=== PATIENT | male | born 1965 | race Caucasian/White ===

== ENCOUNTER 2018-09-03 17:18 | Emergency (ER) | payer OTHER ==
[2018-09-03] MEDS ORDERED: LEVO50TA86 PO (17:22)
--- NOTE | 2018-09-03 17:44 | ER Report ---
History and Physical Time Seen By MD: 17:25 Hx. of Stated Complaint: ABDOMINAL PAIN AND FULLNESS X 6 WEEKS. REPORTS THAT THE DISTENTION MAKES HIM FEEL SHORT OF BREATH HPI/ROS CHIEF COMPLAINT: abdominal pain HISTORY OF PRESENT ILLNESS: 53 year old male presents to ED with epigastric pain. Reports that about 3 months ago he had LLQ pain. He was diagnosed with constipation, given medication for this which helped. Over the past three months, he started to develop upper mid-abdominal pressure. Reports pain is about a 1 out of 10, however he feels more of a pressure sensation. Reports he feels a ball of pressure that pushes on his diaphragm and makes it difficult to breath at times. He reports it makes him feel slight short of breath. He reports he feels constantly full with decreased appetite. He states he tries to eat small frequent snacks, but states he doesn't eat dinner much anymore. He reports he will drink a couple beers in the evening, and this makes him feel too full to eat. He reports he smokes marijuana nightly. Associated symptoms of nausea, vomiting and diarrhea. Reports he has vomited the past two mornings. He has had watery diarrhea for weeks. Denies blood in his vomit or stool. REVIEW OF SYSTEMS: Constitutional: No fever. Decreased appetite. Respiratory: Reports dyspnea as noted above. No cough. Cardiovascular: No chest pain, no palpitations. Gastrointestinal: Reports nausea, vomiting, diarrhea, and epigastric pressure as noted above. Musculoskeletal: No back pain. Allergies: Coded Allergies: No Known Drug Allergies (Unverified , 09/03/18) Home Meds Reported Medications Levothyroxine Sodium (LEVOTHYROXINE SODIUM) 50 Mcg Tablet, 50 MCG PO QDAY, TAB 09/03/18 Past Medical/Surgical History Past medical hx of cadasil, TIAs, diverticulitis, hypothyroid. No significant past surgical hx. Reviewed Nurses Notes: Yes Constitutional Vital Sign - Last 24 Hours 09/03/18 09/03/18 09/03/18 09/03/18 17:22 17:30 17:33 17:48 Temp 97.9 Pulse 60 64 57 Resp 20 18 10 B/P (MAP) 145/98 134/93 (107) Pulse Ox 90 91 92 O2 Delivery Room Air 09/03/18 09/03/18 09/03/18 09/03/18 18:18 18:30 18:33 18:48 Pulse 56 55 51 Resp 11 11 7 B/P (MAP) 136/108 (117) 09/03/18 09/03/18 18:53 19:00 Pulse 57 Resp 11 B/P (MAP) 128/98 (108) Physical Exam General Appearance: The patient is alert, has no immediate need for airway protection and no current signs of toxicity. Eyes: Pupils equal and round no injection. Respiratory: Chest is non tender, lungs are clear to auscultation. Cardiac: regular rate and rhythm Gastrointestinal: Abdomen is soft, no masses, bowel sounds normal. Reports slight tenderness in epigastric area. No hepatosplenomegaly. Musculoskeletal: Neck: Neck is supple and non tender. Extremities have full range of motion and are non tender. Skin: No rashes or lesions. DIFFERENTIAL DIAGNOSIS: After history and physical exam differential diagnosis was considered for hiatal hernia, pancreatitis, GI bleed, GERD, bowel obstruction, cancer. Medical Decision Making Data Points Result Diagram: 09/03/18 1748 09/03/18 1748 Laboratory Hematology Test 09/03/18 17:48 White Blood Count 5.9 k/uL (4.5-11.0) Red Blood Count 4.67 M/uL (4.00-5.60) Hemoglobin 14.9 g/dL (14.0-18.0) Hematocrit 42.5 % (42.0-52.0) Mean Corpuscular Volume 91.0 fL (80.0-96.0) Mean Corpuscular Hemoglobin 31.9 pg (26.0-33.0) Mean Corpuscular Hemoglobin Concent 35.0 g/dL (32.0-36.0) Red Cell Distribution Width 12.8 % (11.5-14.5) Platelet Count 196 K/uL (150-450) Mean Platelet Volume 9.4 fL (7.2-11.1) Neutrophils (%) (Auto) 52.5 % (39.4-72.5) Lymphocytes (%) (Auto) 34.5 % (17.6-49.6) Monocytes (%) (Auto) 7.5 % (4.1-12.4) Eosinophils (%) (Auto) 3.1 % (0.4-6.7) Basophils (%) (Auto) 2.4 % (0.3-1.4) H Nucleated RBC Relative Count (auto) 0.1 /100WBC Neutrophils # (Auto) 3.1 K/uL (2.0-7.4) Lymphocytes # (Auto) 2.0 K/uL (1.3-3.6) Monocytes # (Auto) 0.4 K/uL (0.3-1.0) Eosinophils # (Auto) 0.2 K/uL (0.0-0.5) Basophils # (Auto) 0.1 K/uL (0.0-0.1) Nucleated RBC Absolute Count (auto) 0.01 K/uL Chemistry Test 09/03/18 17:48 Sodium Level 139 mmol/L (137-145) Potassium Level 3.9 mmol/L (3.5-5.0) Chloride Level 104 mmol/L (98-107) Carbon Dioxide Level 26 mmol/L (22-30) Blood Urea Nitrogen 18 mg/dl (9-21) Creatinine 1.20 mg/dl (0.66-1.25) Glomerular Filtration Rate Calc > 60.0 Random Glucose 93 mg/dl (75-110) Calcium Level 10.0 mg/dl (8.4-10.2) Total Bilirubin 0.7 mg/dl (0.2-1.3) Aspartate Amino Transf (AST/SGOT) 30 U/L (0-35) Alanine Aminotransferase (ALT/SGPT) 34 U/L (0-56) Alkaline Phosphatase 59 U/L (0-126) C-Reactive Protein < 0.5 mg/dl (<1.0) Total Protein 7.4 g/dl (6.3-8.2) Albumin 4.5 g/dl (3.5-5.0) Amylase Level 110 U/L (0-110) Lipase 201 U/L (23-300) Urinalysis Test 09/03/18 17:28 Urine Color Straw Urine Clarity Clear Urine pH 7.0 pH (4.8-9.5) Urine Specific [place] 1.004 Urine Protein Negative mg/dL (NEGATIVE) Urine Glucose (UA) Negative mg/dL (NEGATIVE) Urine Ketones Negative mg/dL (NEGATIVE) Urine Blood Negative (NEGATIVE) Urine Nitrite Negative (NEGATIVE) Urine Bilirubin Negative (NEGATIVE) Urine Urobilinogen Negative mg/dL (0.2-1.9) Urine Leukocyte Esterase Negative (NEGATIVE) Urine RBC None /HPF (0-2/HPF) Urine WBC <1 /HPF (0-5/HPF) Urine Squamous Epithelial Cells None /LPF (</=FEW) Urine Bacteria Negative /HPF (NONE-FEW) Urine Mucus None /HPF (NONE-FEW) EKG/Imaging Imaging Location: [facility] - [place] Patient: Anthony Cesar : 1965 Visit/Account:[id number] Date of Sevice: 09/03/2018 CT abdomen and pelvis with IV contrast Indication: Abdominal pain. Comparison: Epigastric pain for 4 months.. Technique: Axial CT images were obtained through the abdomen and pelvis during injection of nonionic iodinated intravenous contrast. Reformatted coronal and sagittal images were also obtained. One of the following dose optimization techniques was utilized in the performance of this exam: Automated exposure control; adjustment of the mA and/or kV according to the patient's size; or use of an iterative reconstruction technique. Specific details can be referenced in the facility's radiology CT exam operational policy. Contrast: 75 ml of Isovue-370 IV contrast. Findings: Lower lung pendleton: Limited views lower lung field are unremarkable. Liver: No focal parenchymal abnormality of the liver. Biliary: Gallbladder appears unremarkable as well as the intra and extra hepatic biliary system. Pancreas: Normal appearance. Spleen: Normal appearance. Adrenal glands: Unremarkable. Kidneys / retroperitoneum: No evidence of nephrolithiasis or hydronephrosis. Couple subcentimeter hypodensities seen in the kidneys are too small characterize and statistically tiny cyst. No other focal abnormality. Bowel / peritoneum / mesenteries: Diverticula seen along the sigmoid colon without pericolonic inflammation. Colon shows no other focal abnormality. The appendix is normal. The small bowel shows no focal normality or obstruction but the stomach is unremarkable. No free air, free fluid, fluid collections or areas of inflammation. Lymph node assessment: No pathologic adenopathy identified. Pelvic structures: Prostate is mildly enlarged and heterogeneous with some calcifications. This does cause impression to the urinary bladder. The remaining pelvic structures visualized within normal limits. Vessels: No significant atherosclerotic calcifications seen throughout a nonaneurysmal abdominal aorta and branches. Musculoskeletal / Body wall: No acute or aggressive osseous abnormality. Mild degenerative changes spine including disc and osseous changes. IMPRESSION: 1. No acute intra-abdominal abnormality. The upper abdomen is unremarkable. 2. Sigmoid diverticulosis without radiographic indication diverticulitis. 3. Other chronic findings as above. ED Course/Re-evaluation ED Course Upon arrival to the ED, patient admitted to an exam room, hx and physical obtained, differentials considered. Patient presents with epigastric pain. Reports that about 3 months ago he had LLQ pain. He was diagnosed with constipation, given medication for this, which helped. Over the past three months, he started to develop upper mid-abdominal pressure. Reports pain is about a 1 out of 10, however he feels more of a pressure sensation. Reports he feels a ball of pressure that pushes on his diaphragm and makes it difficult to breath at times. He reports it makes him feel slight short of breath. He reports he feels constantly full with decreased appetite. He states he tries to eat small frequent snacks, but states he doesn't eat dinner much anymore. He reports he will drink a couple beers in the evening, and this makes him feel too full to eat. He reports he smokes marijuana nightly. Associated symptoms of nausea, vomiting and diarrhea. Reports he has vomited the past two mornings. He has had watery diarrhea for weeks. Denies blood in his vomit or stool. On exam, heart rate and rhythm regular, lungs clear to auscultation. Abdomen is soft, no masses, bowel sounds normal. Reports slight tenderness in epigastric area. No hepatosplenomegaly. IV started. CBC, CMP, amylase, lipase, CRP, UA, and CT of abdomen and pelvis ordered. CBC and CMP unremarkable. Amylase 110 and lipase 201. CRP negative. UA negative. CT with no acute intra-abdominal abnormality. The upper abdomen is unremarkable. Sigmoid diverticulosis without radiographic indication diverticulitis. Due to normal labs and CT scan, there are no acute findings at this time. Will send patient home with self care. Discussed with patient that he may likely need an upper endoscopy and colonoscopy for further evaluation. He will need to follow-up with his PCP as soon as he gets back home. Patient agrees with plan of care. Decision to Disposition Date: Sep 03, 2018 Decision to Disposition Time: 18:57 Depart Departure Latest Vital Signs Vital Signs Date Time Temp Pulse Resp B/P (MAP) Pulse Ox O2 Delivery O2 Flow Rate FiO2 09/03/18 19:00 128/98 (108) 09/03/18 18:53 57 11 09/03/18 17:48 92 09/03/18 17:22 97.9 Room Air Impression: Primary Impression: Epigastric abdominal pain Condition: Condition Unchanged Disposition: HOME OR SELF-CARE Patient Instructions: Abdominal Pain (ED) Additional Instructions: Get plenty of rest and drink plenty of water. Continue current medications as prescribed. Follow-up with your primary care provider as soon as you get home. They may want to order a colonoscopy and endoscopy. Return to the ER if you have increase abdominal pain, increased difficulty breathing, you develop a fever, or for any other concerns. JEAN CLAUDE CHATTERJEE WELDING TESTER Sep 03, 2018 17:44
[2018-09-03 17:56] LABS: PLATELET COUNT, AUTOMATED 196 K/uL (150-450)
[2018-09-03] MEDS ORDERED: IOPAMIDOL 76% 100 ML INFUS BTL 100 ML ONE (18:03)
--- NOTE | 2018-09-03 18:44 | RADIOLOGY IMAGING REPORT ---
FACILITY: [facility] - [place] PATIENT NAME: Anthony Cesar : 1965 MR: [id number] V: [id number] EXAM DATE: ORDERING PHYSICIAN: JEAN CLAUDE CHATETRJEE TECHNOLOGIST: Location: [facility] Patient: Anthony Cesar : 1965 Visit/Account:[id number] Date of Sevice: 09/03/2018 CT abdomen and pelvis with IV contrast Indication: Abdominal pain. Comparison: Epigastric pain for 4 months.. Technique: Axial CT images were obtained through the abdomen and pelvis during injection of nonioni c iodinated intravenous contrast. Reformatted coronal and sagittal images were also obtained. One of the following dose optimization techniques was utilized in the performance of this exam: Autom ated exposure control; adjustment of the mA and/or kV according to the patient's size; or use of an i terative reconstruction technique. Specific details can be referenced in the facility's radiology C T exam operational policy. Contrast: 75 ml of Isovue-370 IV contrast. Findings: Lower lung pendleton: Limited views lower lung field are unremarkable. Liver: No focal parenchymal abnormality of the liver. Biliary: Gallbladder appears unremarkable as well as the intra and extra hepatic biliary system. Pancreas: Normal appearance. Spleen: Normal appearance. Adrenal glands: Unremarkable. Kidneys / retroperitoneum: No evidence of nephrolithiasis or hydronephrosis. Couple subcentimeter hyp odensities seen in the kidneys are too small characterize and statistically tiny cyst. No other focal abnormality. Bowel / peritoneum / mesenteries: Diverticula seen along the sigmoid colon without pericolonic inflam mation. Colon shows no other focal abnormality. The appendix is normal. The small bowel shows no foca l normality or obstruction but the stomach is unremarkable. No free air, free fluid, fluid collections or areas of inflammation. Lymph node assessment: No pathologic adenopathy identified. Pelvic structures: Prostate is mildly enlarged and heterogeneous with some calcifications. This do es cause impression to the urinary bladder. The remaining pelvic structures visualized within normal limits. Vessels: No significant atherosclerotic calcifications seen throughout a nonaneurysmal abdominal aort a and branches. Musculoskeletal / Body wall: No acute or aggressive osseous abnormality. Mild degenerative changes sp ine including disc and osseous changes. IMPRESSION: 1. No acute intra-abdominal abnormality. The upper abdomen is unremarkable. 2. Sigmoid diverticulosis without radiographic indication diverticulitis. 3. Other chronic findings as above. Report Dictated By: Daniel Sanders at 09/03/2018 6:31 PM Report E-Signed By: Daniel Sanders at 09/03/2018 6:38 PM WSN:[id number]
[2018-09-03 19:00] VITALS: BP 128/98
== END 2018-09-03 19:06 | disposition home or self-care (01) ==
LOC: ER 17:38
DX: R10.13 Epigastric pain (principal)
CPT/HCPCS: 74177; 81001; 82150; 83690; 85025; 86140; 99284; Q9967; 82040; 82247; 82310; 82374; 82435; 82565; 82947; 84075; 84132; 84155; 84295; 84450; 84460; 84520